=== PATIENT | male | born 1945 | race Caucasian/White ===

== ENCOUNTER 2025-02-17 23:13 | Emergency (ER) | payer OTHER, SELFPAY ==
[2025-02-17 23:15] VITALS: BP 147/79
[2025-02-18 01:29] VITALS: BMI 26.9
[2025-02-18 01:47] VITALS: BP 139/65
--- NOTE | 2025-02-18 01:48 | ED.SKININJ ---
HPI-Injury
<Carlos Dugan MD - Last Filed: 02/18/25 01:51>
General
Chief Complaint: Skin Surface Trauma
Time Seen by Provider: 02/18/25 01:48
History of Present Illness-Injury
Initial Injury comments:
Patient presents to the emergency department with laceration to left forearm. Occurred after he slipped while walking around in the dark and struck his elbow on a picture frame that shattered. Last tetanus was less than 5 years ago. Denies any
numbness tingling or weakness in the extremity
Phy Exam
<Carlos Dugan MD - Last Filed: 02/18/25 01:51>
Physical Exam
Physical Exam:
General: No acute distress
Head: NCAT
Neck, Normal in appearance, no swelling
Respiratory: No Respiratory distress
Abdomen: No distension
Ext: Left dorsal proximal forearm with 7 cm laceration linear. No foreign bodies on exploration. Intact radial and ulnar pulses. 5 out of 5 strength throughout the upper extremity. Sensation intact to light touch throughout.
Neuro: JAUREGUI, AOx4
Psych: Normal affect
Skin: Normal color
Course
<Carlos Dugan MD - Last Filed: 02/18/25 01:51>
Orders/Labs/Results
Orders:
Orders
02/18/25 01:48
CR Forearm - Left 2 View Urgent
Comment:
Reason For Exam: rule out foreign body
Vital Signs
Initial and Last Documented VS:
Initial Vital Signs
Temp Pulse Resp BP Pulse Ox
98.2 F 69 18 147/79 97
02/17/25 23:15 02/17/25 23:15 02/17/25 23:15 02/17/25 23:15 02/17/25 23:15
Last Documented Vital Signs
Temp Pulse Resp BP Pulse Ox
98.2 F 69 18 147/71 97
02/17/25 23:15 02/17/25 23:15 02/17/25 23:15 02/18/25 02:00 02/18/25 01:51
<Ca Brian PA-C - Last Filed: 02/18/25 03:36>
Orders/Labs/Results
Orders:
Orders
02/18/25 01:48
CR Forearm - Left 2 View Urgent
Comment:
Reason For Exam: rule out foreign body
Vital Signs
Initial and Last Documented VS:
Initial Vital Signs
Temp Pulse Resp BP Pulse Ox
98.2 F 69 18 147/79 97
02/17/25 23:15 02/17/25 23:15 02/17/25 23:15 02/17/25 23:15 02/17/25 23:15
Last Documented Vital Signs
Temp Pulse Resp BP Pulse Ox
98.2 F 69 18 147/71 97
02/17/25 23:15 02/17/25 23:15 02/17/25 23:15 02/18/25 02:00 02/18/25 01:51
Procedures
<Carlos Dugan MD - Last Filed: 02/18/25 01:51>
Laceration Closure
Left Dorsal Arm:
Status of Wound: clean
Size of Wound in cm: 7
Description of Wound Edges: sharp
Preparation: cleaned with saline
Anesthesia: 1% Lidocaine with epi (5)
Revision/Debridement: routine- no revision
Wound exploration: explored to base- no FB
Type of Closure: single layer closure
Skin Closure Material: 4-0 nylon (7)
Number of sutures: 7
<Carlos Dugan MD - Last Filed: 02/18/25 01:51>
*Pulse Oximetry
SaO2: 97
Oxygen Mode of Delivery: Room air
<Ca Brian PA-C - Last Filed: 02/18/25 03:36>
*Pulse Oximetry
Patient hypoxic: no
*Critical Care Note
Total Time (30-74mins, 75-104mins- exclusive of procedures): Not Applicable
<Ca Brian PA-C - Last Filed: 02/18/25 03:36>
Update Note
Update Note:
3:00: Reviewed x-ray imaging. Very small radiopaque area noted along mid forearm however this appears to be distal to area of injury. No evidence of break to skin in region of concern on x-ray. He has no tenderness or palpable foreign body in
this area. Patient states that it was 1 large shard of glass and does not believe any glass shattered. Area on x-ray not consistent with large shard of glass and very low suspicion for shattered glass particles. Patient remains well-appearing and
wound edges well-approximated out any evidence of bleeding. Ultimately feel stable for discharge home with PCP follow-up for suture removal in 7 days. Wound care instructions discussed at length and he will monitor closely for any evidence of
infection or signs of retained foreign body. Patient comfortable with plan
ED Attending Note
<Carlos Dugan MD - Last Filed: 02/18/25 01:51>
ED Attending Note
ED Attending Note:
Mechanical fall with laceration to left forearm. Thoroughly irrigated and repaired with suture.
-
Portions of this chart may have been created with voice recognition software.� Occasional wrong word or��sound alike� substitutions may have occurred due to the inherent limitations of voice recognition software.
Discharge Plan
Departure
Patient Disposition: Home (Routine Discharge)
Date of Disposition: 02/18/25
Time of Disposition: 03:05
Patient with high blood pressure during this ER visit?: Yes
Discharge Problem:
Laceration of forearm
Instructions: Stitches - ED discharge instructions
Referrals:
Mateo Staples MD [Family Provider, Family Practice] - Follow up in 1 week
Activity Restrictions/Additional Instructions:
sutures out in 7 days
return with signs of infection (redness, pus, fevers)
Interventions
Interventions:
*Risk Screen - Suicide Last Done: 02/17/25 23:15
*General Assessment Last Done: 02/17/25 23:15
*Neglect/Abuse Screening Last Done: 02/17/25 23:15
*ED- Fall Risk Assessment Last Done: 02/17/25 23:15
*ED COVID-19 Vaccine History Last Done: 02/17/25 23:15
ED-Skin Assessment Last Done: 02/18/25 01:29
Discharge Date and Time
Print Language: MONGOLIAN
[2025-02-18 02:00] VITALS: BP 147/71
== END 2025-02-18 03:17 | disposition home or self-care (01) ==
LOC: EMR 23:13
PROVIDERS: EMERGENCY PHYSICIAN Emergency Medicine; FAMILY PHYSICIAN Family Medicine
DX: S51.812A Laceration without foreign body of left forearm, initial encounter (principal); W01.0XXA Fall on same level from slipping, tripping and stumbling without subsequent striking against object, initial encounter; Y93.01 Activity, walking, marching and hiking
CPT/HCPCS: 99283; 12002; 73090

== ENCOUNTER 2025-06-11 23:44 | Emergency (ER) | payer OTHER, SELFPAY ==
[2025-06-11 23:47] VITALS: BP 158/80
[2025-06-12 00:53] VITALS: BMI 26.1
[2025-06-12 00:55] VITALS: BP 165/70
--- NOTE | 2025-06-12 02:31 | DOWNTIME ---
There was a [employer] Downtime on 06/12/2025 from 0100 to 06/12/2025 at 0215. Downtime documentation of patient's care, including medication administrations, has been reconciled in the electronic record per guidelines. Refer to the
patient's paper chart under the miscellaneous tab to see printed paper medication records and downtime forms.
--- NOTE | 2025-06-12 04:06 | ED.GENMED ---
History of Present Illness
General
Chief Complaint: Eye Problems
Source: patient
Exam Limitations: none
Time Seen by Provider: 06/12/25 03:25
Nursing documentation reviewed up to this point in time: agreed with
History of Present Illness
History of Present Illness:
Note:
CHIEF COMPLAINT(S)
Foreign body sensation in the left eye after sawing tree branches.
HISTORY OF PRESENT ILLNESS
The patient is a 79-year-old male who presented after experiencing foreign body sensation in his left eye while sawing tree branches with a bow saw. The incident involved particles, potentially wood chips or dust, entering his eye. The patient did
not perceive significant trauma at the time, only attributing it to small particles. He attempted to rinse the eye but went to bed without noticing any immediate problem.
Upon examination, the left eye reveals a large corneal abrasion. There is no mention of previous similar occurrences. The patient is assured that there is no significant conjuctival hemorrhage, although the conjunctive appears slightly irritated.
PAST MEDICAL AND SURGICAL HISTORY
The patient reports receiving a tetanus shot within the last five years.
PHYSICAL EXAM
Eye Ears, Nose, Mouth, and Throat: Notable corneal abrasion on the left eye, no significant conjunctival hemorrhage observed.
PLAN
1. Begin antibiotic treatment for corneal abrasion.
2. The patient has an established relationship with an family program specialist and is advised to follow up with them, making a call for a repeat examination soon.
3. Prescribed eye drops to be taken immediately and instructions given for continued application through the next day.
DIFFERENTIAL DIAGNOSIS
The Differential Diagnosis includes, in no particular order and is not limited to:
1. Corneal abrasion
2. Subconjunctival hemorrhage
3. Foreign body sensation due to retained particles
4. Allergic conjunctivitis
5. Infective keratitis
6. Conjunctivitis
7. Dry eye syndrome
8. Episcleritis
9. Acute glaucoma
10. Traumatic iritis
Disposition:
SUMMARY OF ENCOUNTER
The patient, a 79-year-old male, presented with a foreign body sensation in the left eye after sawing tree branches. Examination revealed a large corneal abrasion but no significant conjunctival hemorrhage. He was assured there was no major eye
trauma and advised to initiate antibiotic eye drops immediately. Instructions were given for continuous application through the next day.
ASSESSMENT
The patient�s left eye symptoms are consistent with corneal abrasion, confirmed by physical examination. Although conjunctival irritation was observed, it was not significant enough to warrant further immediate intervention beyond the prescribed
management.
PLAN
The patient should start antibiotic treatment for the corneal abrasion and contact his family program specialist for a follow-up examination as soon as possible.
PATIENT EDUCATION AND COUNSELING
The patient was informed about the importance of immediately using the prescribed eye drops and was counseled on monitoring for any signs of infection or increased irritation. He was reminded to schedule a follow-up with his family program specialist.
FOLLOW-UP INSTRUCTIONS
The patient was instructed to call his family program specialist for a follow-up visit at the earliest.
MEDICATION RECONCILIATION
The patient was prescribed antibiotic eye drops for the treatment of corneal abrasion.
MEDICAL DECISION MAKING
-Complexity of Data Reviewed: Chronic conditions affecting care include corneal abrasion. Differential diagnosis included corneal abrasion, conjunctivitis, retained foreign body sensation, allergic conjunctivitis, infective keratitis,
subconjunctival hemorrhage, dry eye syndrome, episcleritis, acute glaucoma, and traumatic iritis.
-Risk: Consideration of Admission/Observation was deemed unnecessary due to stable examination findings and reassuring work-up. The patient is deemed safe for outpatient management with close follow-up.
DIAGNOSIS
- Corneal Abrasion (ICD-10: S05.00XA)
Phy Exam
Physical Exam
Physical Exam:
.
Eye Exam
Eye Exam: PERRL and EOMI
Able to obtain acuity?: Yes
Eye Exam General: PERRL: left
Pupil Exam: Bilateral: round and reactive
Course
Orders/Labs/Results
Orders:
Orders
06/12/25 04:00
Gentamicin [Genoptic 0.3% Eye Drops] See Dose Instructions OPHTH NOW STA
Vital Signs
Initial and Last Documented VS:
Initial Vital Signs
Temp Pulse Resp BP Pulse Ox
98.2 F 56 20 158/80 98
06/11/25 23:47 06/11/25 23:47 06/11/25 23:47 06/11/25 23:47 06/11/25 23:47
Last Documented Vital Signs
Temp Pulse Resp BP Pulse Ox
97.8 F 61 18 165/70 98
06/12/25 00:55 06/12/25 00:55 06/12/25 00:55 06/12/25 00:55 06/12/25 00:55
*Pulse Oximetry
SaO2: 98
Oxygen Mode of Delivery: Room air
Patient hypoxic: no
*Critical Care Note
Total Time (30-74mins, 75-104mins- exclusive of procedures): Not Applicable
ED Attending Note
-
Portions of this chart may have been created with voice recognition software.� Occasional wrong word or��sound alike� substitutions may have occurred due to the inherent limitations of voice recognition software.
Discharge Plan
Departure
Patient Disposition: Home (Routine Discharge)
Date of Disposition: 06/12/25
Time of Disposition: 04:08
Patient with high blood pressure during this ER visit?: Yes
Condition: Good
Discharge Problem:
Abrasion, corneal, Subconjunctival hemorrhage
Instructions: Corneal Abrasion (DC), How to Use Eye Drops, Subconjunctival Hemorrhage, BLOOD PRESSURE
Referrals:
Mateo Staples MD [Family Provider, Family Practice]
Activity Restrictions/Additional Instructions:
Please apply 1 drop to the left eye of the supplied Genoptic every 4 hours while awake.
Thank You for choosing [facility].
It was a pleasure meeting you and taking part in your care. We hope for your continued healing and wellness.
Please read discharge instructions in their entirety. However, they are for general education and may not describe your exact diagnosis at discharge. Information on your ER visit and medical conditions were discussed with you along with appropriate
follow up information...
If indicated, please take your medications as instructed and indicated on discharge paperwork.
Please schedule a follow up appointment as directed. Call to schedule an appointment
Please return to the emergency department with ANY change in, persisting, or worsening of symptoms. If any of your symptoms do not improve, or persist, or become more severe within 6-12 hours, please return to the emergency department for further
care.
Please return to the emergency department if you develop a headache, neck pain/stiffness, fever greater than 100.4F, chest pain, shortness of breath, persistent nausea, vomiting, slurred speech, difficulty walking, numbness/tingling, weakness, signs
of infection or any other symptoms that are worrisome to you.
If you have any questions or concerns please do not hesitate to call the Hospital at .
Interventions
Interventions:
*Risk Screen - Suicide Last Done: 06/11/25 23:47
*General Assessment Last Done: 06/12/25 00:53
*Neglect/Abuse Screening Last Done: 06/11/25 23:47
*ED- Fall Risk Assessment Last Done: 06/12/25 00:53
*ED COVID-19 Vaccine History Last Done: 06/12/25 00:53
*ED Influenza Vaccine History Last Done: 06/12/25 00:53
Discharge Date and Time
Print Language: GEORGIAN
[2025-06-12] MEDS: GENOPTIC 0.3% EYE DROPS 1 DROP OPHTH (04:24)
[2025-06-12 04:28] VITALS: BP 156/85
== END 2025-06-12 04:31 | disposition home or self-care (01) ==
LOC: EMR 23:44
PROVIDERS: EMERGENCY PHYSICIAN Student in an Organized Health Care Education/Training Program; FAMILY PHYSICIAN Family Medicine
DX: H11.30 Conjunctival hemorrhage, unspecified eye (principal); S05.02XA Injury of conjunctiva and corneal abrasion without foreign body, left eye, initial encounter; W22.8XXA Striking against or struck by other objects, initial encounter
CPT/HCPCS: 99283